=== PATIENT | female | born 1945 | race Caucasian/White ===

== ENCOUNTER 2017-09-28 13:17 | Emergency (ER) | payer MEDICARE, OTHER ==
[2017-09-28] MEDS ORDERED: Adacel (T-DAP) 0.5 ML VIAL ONE (13:52)
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
== END 2017-09-28 15:21 | disposition home or self-care (01) ==
LOC: ERS 13:17
DX: S46.321A Laceration of muscle, fascia and tendon of triceps, right arm, initial encounter (principal); S51.012A Laceration without foreign body of left elbow, initial encounter; S51.811A Laceration without foreign body of right forearm, initial encounter; I10 Essential (primary) hypertension; K21.9 Gastro-esophageal reflux disease without esophagitis; E78.5 Hyperlipidemia, unspecified; Z87.891 Personal history of nicotine dependence; Z79.899 Other long term (current) drug therapy; V43.52XA Car driver injured in collision with other type car in traffic accident, initial encounter
CPT/HCPCS: 90471; 90715

== ENCOUNTER 2017-10-21 12:42 | Outpatient (CLI) | payer MEDICARE ==
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
== END 2017-10-21 12:43 | disposition home or self-care (01) ==
LOC: CT 12:42
PROVIDERS: ATTEND Internal Medicine
DX: R51 Headache (principal)
CPT/HCPCS: 70450

== ENCOUNTER 2018-01-03 12:00 | Outpatient (CLI) | payer MEDICARE | END 2018-01-03 12:01 | disposition home or self-care (01) | LOC: BICRAD 12:00 | PROVIDERS: ATTEND Internal Medicine | DX: M54.2 Cervicalgia (principal); M43.12 Spondylolisthesis, cervical region | CPT/HCPCS: 72040 ==

== ENCOUNTER 2018-04-13 11:05 | Outpatient (CLI) | payer MEDICARE | END 2018-04-13 11:06 | disposition home or self-care (01) | LOC: BICRAD 11:05 | PROVIDERS: ATTEND Internal Medicine | DX: M54.9 Dorsalgia, unspecified (principal); M19.90 Unspecified osteoarthritis, unspecified site | CPT/HCPCS: 72100 ==